=== PATIENT | male | born 1935 | race Caucasian/White ===

== ENCOUNTER 2017-07-04 18:41 | Emergency (ER) | payer MEDICARE, OTHER ==
[2017-07-04] MEDS ORDERED: Ondansetron 4 MG/2 ML SDV IVPUSH ONE (19:05)
[2017-07-04] MEDS ORDERED: Ondansetron 4 MG/2 ML SDV ONE (19:11)
[2017-07-04] MEDS: Nitroglycerin 0.4 MG Tab.SL SL PRN ×2 (19:12→19:19)
[2017-07-04] MEDS ORDERED: Aspirin 81 MG Tab.Chew PO ONE (19:14)
[2017-07-04] MEDS ORDERED: Lactated Ringers 1,000 ML IV SCH (19:15)
[2017-07-04] MEDS ORDERED: Nitroglycerin 0.4 MG Tab.SL ONE (19:16)
--- NOTE | 2017-07-04 19:21 | EDM.PDOC ---
ED HPI GENERAL MEDICAL PROBLEM - General Chief Complaint: Chest Pain Stated Complaint: CHEST PAIN Time Seen by Provider: 07/04/17 19:00 - History of Present Illness INITIAL COMMENTS - FREE TEXT/NARRATIVE: 81-year-old male presents emergency room with chest pain. This pain started around 4:00 this evening it is located under his left lower chest does not radiate into his arm or jaw or your else he has associated nausea and discomfort with this he denies any history of reflux or GERD. He did take 325 mg of aspirin at the onset. Patient has no prior history of heart problems no history of coronary artery disease. He is not treated for hypertension hyperlipidemia or diabetes. The patient does not smoke he drinks alcohol occasionally. Family history is noncontributory. Chest Pain Score (Numeric/FACES): 9 - Related Data Allergies Allergy/AdvReac Type Severity Reaction Status Date / Time adhesive tape Allergy Rash Verified 07/04/17 18:55 Home Meds: Home Meds Doxycycline [Vibramycin] 100 mg IV Q12H #19 vial 07/04/17 [Rx] Hydrocodone/Acetaminophen [[place] 5-325 Tablet] 1 - 2 each PO Q6H PRN #15 tablet 07/04/17 [Rx] Levothyroxine [Synthroid] 1 tab PO DAILY 07/04/17 [History] Tamsulosin HCl [Flomax] 1 cap PO DAILY 07/04/17 [History] Past Medical History HEENT History: Reports: Impaired Vision Genitourinary History: Reports: Other (See Below) Other Genitourinary History: Takes flomax Endocrine/Metabolic History: Reports: Hypothyroidism - Past Surgical History GI Surgical History: Reports: Colostomy, Other (See Below) Other GI Surgeries/Procedures: Colon cancer- has an ostomy Musculoskeletal Surgical History: Reports: Other (See Below) Other Musculoskeletal Surgeries/Procedures:: Back surgery, bilateral shoulder surgeries Social & Family History - Family History Family Medical History: Noncontributory ED ROS GENERAL - Review of Systems Review Of Systems: See Below Constitutional: Reports: No Symptoms HEENT: Reports: No Symptoms Respiratory: Reports: No Symptoms Cardiovascular: Reports: No Symptoms Endocrine: Reports: No Symptoms GI/Abdominal: Reports: No Symptoms, Other (Will touch the stomach flu several days ago but this resolved several days ago) : Reports: No Symptoms Musculoskeletal: Reports: No Symptoms Neurological: Reports: No Symptoms Hematologic/Lymphatic: Reports: No Symptoms Immunologic: Reports: No Symptoms ED EXAM, GENERAL - Physical Exam Exam: See Below Exam Limited By: No Limitations General Appearance: Mild Distress (From the pain) Head: Atraumatic, Normocephalic Neck: Normal Inspection, Supple, Non-Tender, Full Range of Motion. No: Lymphadenopathy (L), Lymphadenopathy (R) Respiratory/Chest: No Respiratory Distress, Lungs Clear, Normal Breath Sounds Cardiovascular: Normal Peripheral Pulses, Regular Rate, Rhythm, No Edema GI/Abdominal: Normal Bowel Sounds, Soft, Non-Tender Back Exam: Normal Inspection. No: CVA Tenderness (L), CVA Tenderness (R) Extremities: Normal Inspection, No Pedal Edema Neurological: Alert, Oriented, Normal Cognition Psychiatric: Normal Affect, Normal Mood Lymphatic: No Adenopathy Course - Vital Signs Last Recorded V/S: Last Vital Signs Temp 36.7 C 07/04/17 18:51 Pulse 55 L 07/04/17 18:51 Resp 15 07/04/17 18:51 BP 139/56 L 07/04/17 19:20 Pulse Ox 98 07/04/17 18:51 - Orders/Labs/Meds Orders: Active Orders 24 hr Category Date Time Status EKG Documentation Completion [RC] STAT Care 07/04/17 19:34 Active Abdomen Pelvis w Cont [CT] Routine Exams 07/04/17 Taken Ang Chest [CT] Stat Exams 07/04/17 20:31 Taken Chest 1V Frontal [CR] Stat Exams 07/04/17 19:29 Taken CULTURE BLOOD [BC] Stat Lab 07/04/17 22:41 Received CULTURE BLOOD [BC] Stat Lab 07/04/17 22:51 Received Nitroglycerin [Nitrostat] Med 07/04/17 19:09 Active 0.4 mg SL Q5M PRN Sodium Chloride 0.9% [Normal Saline] 1,000 ml Med 07/04/17 22:30 Active IV ASDIRECTED Sodium Chloride 0.9% [Normal Saline] 100 ml Med 07/04/17 21:00 Active IV ASDIRECTED Sodium Chloride 0.9% [Saline Flush] Med 07/04/17 20:58 Active 10 ml FLUSH ONETIME PRN Blood Culture x2 Reflex Set [OM.PC] Stat Oth 07/04/17 22:17 Ordered Medication Orders Sodium Chloride (Normal Saline) 100 mls @ 75 mls/hr IV ASDIRECTED STEFANIE Last Admin: 07/04/17 21:18 Dose: 75 mls/hr Sodium Chloride (Normal Saline) 1,000 mls @ 125 mls/hr IV ASDIRECTED STEFANIE Last Admin: 07/04/17 22:37 Dose: 125 mls/hr Nitroglycerin (Nitrostat) 0.4 mg SL Q5M PRN PRN Reason: Chest Pain Last Admin: 07/04/17 19:19 Dose: 0.4 mg Admin: 07/04/17 19:12 Dose: 0.4 mg Sodium Chloride (Saline Flush) 10 ml FLUSH ONETIME PRN PRN Reason: IV FLUSH Last Admin: 07/04/17 21:18 Dose: 10 ml Labs: Laboratory Tests 07/04/17 07/04/17 07/04/17 Range/Units 18:55 18:55 18:55 WBC 10.40 H (4.23-9.07) K/mm3 RBC 4.92 (4.63-6.08) M/mm3 Hgb 14.7 (13.7-17.5) gm/L Hct 43.6 (40.1-51.0) % MCV 88.6 (79.0-92.2) fl MCH 29.9 (25.7-32.2) pg MCHC 33.7 (32.2-35.5) g/dl RDW Std Deviation 40.3 (35.1-43.9) fL Plt Count 250 (163-337) K/mm3 MPV 9.7 (9.4-12.3) fl Neutrophils % (Manual) 79 H (40-60) % Band Neutrophils % 1 (0-10) % Lymphocytes % (Manual) 16 L (20-40) % Atypical Lymphs % 0 % Monocytes % (Manual) 3 (2-10) % Eosinophils % (Manual) 1 (0.8-7.0) % Basophils % (Manual) 0 L (0.2-1.2) Platelet Estimate Adequate RBC Morph Comment Normal PT 11.5 (8.0-13.0) SECONDS INR 1.05 APTT 26 (22-36) SECONDS Sodium 139 (136-145) mEq/L Potassium 3.4 L (3.5-5.1) mEq/L Chloride 102 (98-107) mEq/L Carbon Dioxide 29 (21-32) mEq/L Anion Gap 11.4 (5-15) BUN 17 (7-18) mg/dL Creatinine 1.4 H (0.7-1.3) mg/dL Est Cr Clr Drug Dosing 41.85 mL/min Estimated GFR (MDRD) 49 (>60) mL/min BUN/Creatinine Ratio 12.1 L (14-18) Glucose 134 H (83-115) mg/dL Calcium 8.9 (8.5-10.1) mg/dL Total Bilirubin 0.5 (0.2-1.0) mg/dL AST 21 (15-37) U/L ALT 29 (16-63) U/L Alkaline Phosphatase 92 (46-116) U/L Troponin I < 0.017 (0.00-0.056) ng/mL Total Protein 7.4 (6.4-8.2) g/dl Albumin 3.8 (3.4-5.0) g/dl Globulin 3.6 gm/dL Albumin/Globulin Ratio 1.1 (1-2) 07/04/17 Range/Units 20:54 WBC (4.23-9.07) K/mm3 RBC (4.63-6.08) M/mm3 Hgb (13.7-17.5) gm/L Hct (40.1-51.0) % MCV (79.0-92.2) fl MCH (25.7-32.2) pg MCHC (32.2-35.5) g/dl RDW Std Deviation (35.1-43.9) fL Plt Count (163-337) K/mm3 MPV (9.4-12.3) fl Neutrophils % (Manual) (40-60) % Band Neutrophils % (0-10) % Lymphocytes % (Manual) (20-40) % Atypical Lymphs % % Monocytes % (Manual) (2-10) % Eosinophils % (Manual) (0.8-7.0) % Basophils % (Manual) (0.2-1.2) Platelet Estimate RBC Morph Comment PT (8.0-13.0) SECONDS INR APTT (22-36) SECONDS Sodium (136-145) mEq/L Potassium (3.5-5.1) mEq/L Chloride (98-107) mEq/L Carbon Dioxide (21-32) mEq/L Anion Gap (5-15) BUN (7-18) mg/dL Creatinine (0.7-1.3) mg/dL Est Cr Clr Drug Dosing mL/min Estimated GFR (MDRD) (>60) mL/min BUN/Creatinine Ratio (14-18) Glucose (83-115) mg/dL Calcium (8.5-10.1) mg/dL Total Bilirubin (0.2-1.0) mg/dL AST (15-37) U/L ALT (16-63) U/L Alkaline Phosphatase (46-116) U/L Troponin I < 0.017 (0.00-0.056) ng/mL Total Protein (6.4-8.2) g/dl Albumin (3.4-5.0) g/dl Globulin gm/dL Albumin/Globulin Ratio (1-2) Meds: Medications Generic Name Dose Route Start Last Admin Trade Name Freq PRN Reason Stop Dose Admin Sodium Chloride 100 mls @ 75 mls/hr 07/04/17 21:00 07/04/17 21:18 Normal Saline IV 75 mls/hr ASDIRECTED STEFANIE Administration Sodium Chloride 1,000 mls @ 125 mls/hr 07/04/17 22:30 07/04/17 22:37 Normal Saline IV 125 mls/hr ASDIRECTED STEFANIE Administration Nitroglycerin 0.4 mg 07/04/17 19:09 07/04/17 19:19 Nitrostat SL 0.4 mg Q5M PRN Administration Chest Pain Sodium Chloride 10 ml 07/04/17 20:58 07/04/17 21:18 Saline Flush FLUSH 10 ml ONETIME PRN Administration IV FLUSH Discontinued Medications Generic Name Dose Route Start Last Admin Trade Name Freq PRN Reason Stop Dose Admin Hydrocodone Bitart/Acetaminophen 1 tab 07/04/17 22:33 07/04/17 22:36 [place] 325-5 Mg PO 07/04/17 22:34 1 tab ONETIME ONE Administration Hydrocodone Bitart/Acetaminophen 1 tab 07/04/17 23:38 07/04/17 23:48 [place] 325-5 Mg PO 07/04/17 23:39 1 tab ONETIME ONE Administration Hydrocodone Bitart/Acetaminophen Confirm 07/05/17 00:02 Take Home: Acetam/Hydrocodon 325-5 Mg, 5 Pack Administered 07/05/17 00:03 Dose 1 packet .ROUTE .STK-MED ONE Aspirin 324 mg 07/04/17 19:14 07/04/17 19:19 Aspirin PO 07/04/17 19:15 Not Given ONETIME ONE Al Hydroxide/Mg Hydroxide 30 0 ml 07/04/17 20:16 07/04/17 20:20 ml/ Lidocaine HCl 15 ml PO 07/04/17 20:17 45 ml ONETIME ONE Administration Fentanyl Confirm 07/04/17 19:45 07/04/17 20:22 Sublimaze Administered 07/04/17 19:46 Not Given Dose 100 mcg .ROUTE .STK-MED ONE Fentanyl 25 mcg 07/04/17 19:43 07/04/17 19:43 Sublimaze IVPUSH 07/04/17 19:44 25 mcg ONETIME ONE Administration Fentanyl 25 mcg 07/04/17 19:49 07/04/17 19:55 Sublimaze IVPUSH 07/04/17 19:50 Not Given ONETIME ONE Fentanyl 25 mcg 07/04/17 20:26 07/04/17 20:31 Sublimaze IVPUSH 07/04/17 20:27 25 mcg ONETIME ONE Administration Fentanyl 25 mcg 07/04/17 20:47 07/04/17 21:24 Sublimaze IVPUSH 07/04/17 20:48 25 mcg ONETIME ONE Administration Lactated Ringer's 1,000 mls @ 50 mls/hr 07/04/17 19:15 07/04/17 20:53 Ringers, Lactated IV 50 mls/hr ASDIRECTED STEFANIE Infusion Ceftriaxone Sodium 1 gm/ 100 mls @ 200 mls/hr 07/04/17 22:23 07/04/17 22:37 Sodium Chloride IV 07/04/17 22:52 200 mls/hr ONETIME ONE Administration Iopamidol 100 ml 07/04/17 20:58 07/04/17 21:18 Isovue-370 (76%) IVPUSH 07/04/17 20:59 100 ml ONETIME ONE Administration Morphine Sulfate Confirm 07/04/17 19:33 07/04/17 19:44 Morphine Administered 07/04/17 19:34 Not Given Dose 2 mg .ROUTE .STK-MED ONE Morphine Sulfate 1 mg 07/04/17 19:27 07/04/17 19:27 Morphine IVPUSH 07/04/17 19:28 1 mg ONETIME ONE Administration Morphine Sulfate 1 mg 07/04/17 19:35 07/04/17 19:45 Morphine IVPUSH 07/04/17 19:36 Not Given ONETIME ONE Nitroglycerin Confirm 07/04/17 19:16 07/04/17 19:20 Nitrostat Administered 07/04/17 19:17 Not Given Dose 0.4 mg .ROUTE .STK-MED ONE Ondansetron HCl 4 mg 07/04/17 19:05 07/04/17 19:10 Zofran IVPUSH 07/04/17 19:06 4 mg ONETIME ONE Administration Ondansetron HCl Confirm 07/04/17 19:11 07/04/17 19:20 Zofran Administered 07/04/17 19:12 Not Given Dose 4 mg .ROUTE .STK-MED ONE Sucralfate 1 gm 07/04/17 21:30 07/04/17 21:34 Carafate PO 07/04/17 21:31 1 gm ONETIME ONE Administration - Re-Assessments/Exams Free Text/Narrative Re-Assessment/Exam: 07/04/17 19:34 Patient has had no improvement with 2 sublingual nitroglycerin. He had taken 325 mg of aspirin prior to arrival. With no improvement IV fluids were started he was given 1 mg of morphine he has not had much improvement with this this will be repeated second EKG pending first EKG shows sinus bradycardia rate [address]-T wave changes she's got some nonspecific nondiagnostic ST elevation inferiorly. 07/04/17 23:02 Patient had his best pain improvement with some IV fentanyl. We attempted a GI cocktail this did not seem to help. With the uncertainty CTA was obtained which showed bibasilar bronchopneumonia no signs of pulmonary embolism no acute findings in the thoracic aorta abdomen pelvis no acute findings of the abdominal aorta his gallbladder does appear to be inflamed he has multiple small stones in the gallbladder gallbladder is at the upper limit of normal in size measuring about 4.8 cm no ductal dilation. With further discussion with the patient as it turns out he had a normal stress test done on May 17, 2017. A second troponin was negative his vitals are remained stable here he has been afebrile and he's not required any supplemental oxygen the patient will most likely be treated as an outpatient for pneumonia on doxycycline 100 mg twice daily anticipating outpatient gallbladder ultrasound and close follow-up in the clinic. Departure - Departure Time of Disposition: 23:05 Disposition: Home, Self-Care 01 Clinical Impression: Pneumonia, Cholelithiasis Prescriptions: Doxycycline [Vibramycin] 100 mg IV Q12H #19 vial Hydrocodone/Acetaminophen [[place] 5-325 Tablet] 1 - 2 each PO Q6H PRN #15 tablet PRN Reason: Pain Referrals: PCP,Not In Area [Primary Care Provider] - Forms: ED Department Discharge Additional Instructions: Return to the emergency room with any questions problems worsening symptoms. Follow-up he regular provider or physician tomorrow for recheck. He been started on on doxycycline this is an antibiotic take it once twice daily for the pneumonia. You should be scheduled for a gallbladder ultrasound. This will help clarify the issue with possible gallbladder disease. You have been given a prescription for hydrocodone take one or 2 every 6 hours as needed for pain. Allow 12 hours after using this medication before driving or returning to work - My Orders Last 24 Hours: My Active Orders 07/04/17 Abdomen Pelvis w Cont [CT] Routine 07/04/17 19:09 Nitroglycerin [Nitrostat] 0.4 mg SL Q5M PRN 07/04/17 19:29 Chest 1V Frontal [CR] Stat 07/04/17 19:34 EKG Documentation Completion [RC] STAT 07/04/17 20:31 Ang Chest [CT] Stat 07/04/17 20:58 Sodium Chloride 0.9% [Saline Flush] 10 ml FLUSH ONETIME PRN 07/04/17 21:00 Sodium Chloride 0.9% [Normal Saline] 100 ml IV ASDIRECTED 07/04/17 22:17 Blood Culture x2 Reflex Set [OM.PC] Stat 07/04/17 22:30 Sodium Chloride 0.9% [Normal Saline] 1,000 ml IV ASDIRECTED 07/04/17 22:41 CULTURE BLOOD [BC] Stat 07/04/17 22:51 CULTURE BLOOD [BC] Stat - Assessment/Plan Last 24 Hours: My Active Orders 07/04/17 Abdomen Pelvis w Cont [CT] Routine 07/04/17 19:09 Nitroglycerin [Nitrostat] 0.4 mg SL Q5M PRN 07/04/17 19:29 Chest 1V Frontal [CR] Stat 07/04/17 19:34 EKG Documentation Completion [RC] STAT 07/04/17 20:31 Ang Chest [CT] Stat 07/04/17 20:58 Sodium Chloride 0.9% [Saline Flush] 10 ml FLUSH ONETIME PRN 07/04/17 21:00 Sodium Chloride 0.9% [Normal Saline] 100 ml IV ASDIRECTED 07/04/17 22:17 Blood Culture x2 Reflex Set [OM.PC] Stat 07/04/17 22:30 Sodium Chloride 0.9% [Normal Saline] 1,000 ml IV ASDIRECTED 07/04/17 22:41 CULTURE BLOOD [BC] Stat 07/04/17 22:51 CULTURE BLOOD [BC] Stat
[2017-07-04] MEDS ORDERED: Morphine 2 MG/ML Syringe IVPUSH ONE ×2 (19:27→19:35)
[2017-07-04] MEDS ORDERED: Morphine 2 MG/ML Syringe ONE (19:33)
[2017-07-04] MEDS ORDERED: fentaNYL 100 MCG/2 ML SDV IVPUSH ONE ×4 (19:43→20:47)
[2017-07-04] MEDS ORDERED: fentaNYL 100 MCG/2 ML SDV ONE (19:45)
[2017-07-04] MEDS ORDERED: Alum Hydrox/Mag Hydrox/Simeth 30 ML, Lidocaine 2% 15 ML PO ONE ×2 (20:16)
[2017-07-04] MEDS ORDERED: Iopamidol 755 Mg/ML 100 ML Bottle IVPUSH ONE (20:58)
[2017-07-04] MEDS ORDERED: Sodium Chloride 0.9% 10 ML Syringe FLUSH PRN (20:58)
[2017-07-04] MEDS ORDERED: Sodium Chloride 0.9% 100 ML IV SCH (21:00)
[2017-07-04] MEDS ORDERED: Sucralfate Suspension 1 GM/10 ML Cup PO ONE (21:30)
[2017-07-04] MEDS ORDERED: cefTRIAXone 1 GM in Sodium Chloride 0.9% 100 ML IV ONE (22:23)
[2017-07-04] MEDS ORDERED: Sodium Chloride 0.9% 1,000 ML IV SCH (22:30)
[2017-07-04] MEDS ORDERED: Acetaminophen/HYDROcodone 325-5 MG Tab PO ONE ×2 (22:33→23:38)
[2017-07-05] MEDS ORDERED: Take Home: Acetaminophen/HYDROcodone 325-5 MG, 5 Tab Pack ONE (00:02)
--- NOTE | 2017-07-05 07:42 | CT ---
CT abdomen and pelvis Technique: Multiple axial sections were obtained from above the dome of the diaphragm inferiorly through the pubic symphysis. Intravenous contrast was utilized. No oral contrast has been given. Comparison: No previous abdominal CT, previous abdominal x-ray of 04/11/15 is available. Findings: Fatty infiltration is seen within the liver. Increased density is noted around the gallbladder most likely due to focal fatty sparing. Gallbladder is somewhat distended. Minimal calcified stones are seen within the dependent portion of the gallbladder. Spleen appears within normal limits. Adrenal glands show no nodule. Pancreas appears within normal limits. Kidneys show symmetric contrast enhancement without hydronephrosis. Several small cysts are noted within the lower left kidney with largest measuring approximately 1.3 cm. Diffuse atherosclerotic change is noted within the aorta and iliac vessels. No aneurysm is identified. No retroperitoneal adenopathy is seen. No mesenteric abnormalities are noted. Ostomy is identified within the left lower abdomen. No pelvic mass or adenopathy is seen. No free fluid or inflammatory change is identified. Celiac axis and superior mesenteric arteries appear to be patent. Minimal narrowing of the proximal right renal artery is seen and felt not to be hemodynamic significant. Inferior mesenteric artery is patent. Bone window settings were reviewed which show compression deformities within L1 and L4 which are likely old. Scattered degenerative change is seen with disc space narrowing and endplate spurring as well as degenerative apophyseal change. Impression: 1. Gallbladder somewhat distended. This may relate to fasting. 2. Several dependent gallstones within the gallbladder. 3. Fatty infiltration within the liver with focal fatty sparing around the gallbladder. 4. Other incidental findings as noted above. Diagnostic code #3 Agree with preliminary report issued by [facility] ([facility] preliminary report dictated on 07/04/17, 11:14 PM Central Time)
--- NOTE | 2017-07-05 07:42 | CT ---
CT chest Technique: Multiple axial sections through the chest were obtained. Intravenous contrast was utilized. Study has been performed as a pulmonary angiogram protocol. Comparison: No prior chest imaging. Findings: Pulmonary arteries are well-opacified. Mediastinum and hilar regions show no adenopathy or mass. Mild coronary artery calcification is seen. Increased lung markings are seen within both lung bases. Without prior chest CT uncertain if these are chronic or acute. Lungs otherwise are clear. Mild degenerative spurring is noted within the spine. Impression: 1. No findings of pulmonary embolism. 2. Mild increased lung markings within both lung bases. Without old chest CT uncertain if these are chronic or acute (I believe findings are most likely due to mild fibrosis given the patient's age). 3. Other incidental findings as noted above. Diagnostic code #2 I agree with preliminary report issued by [facility] ([facility] preliminary report dictated on 07/04/17, 10:50 PM Central Time)
--- NOTE | 2017-07-05 07:42 | CR ---
Chest: Portable view of the chest was obtained. Comparison: No prior chest x-ray. Findings: Heart size and mediastinum are normal. Slight scoliosis is noted within the upper thoracic spine with degenerative spurring. Minimal density within both lateral costophrenic angles compatible with slight atelectasis. Lungs otherwise are clear. Impression: 1. Nothing acute is identified on portable chest x-ray. Diagnostic code #2
== END 2017-07-05 00:10 | disposition home or self-care (01) ==
LOC: JD.ED 18:41
DX: J18.9 Pneumonia, unspecified organism (principal); K80.20 Calculus of gallbladder without cholecystitis without obstruction; E03.9 Hypothyroidism, unspecified; Z79.899 Other long term (current) drug therapy; Z91.09 Other allergy status, other than to drugs and biological substances
CPT/HCPCS: 36415; 71045; 71275; 74177; 80053; 84484; 85025; 85610; 85730; 87040; 93005; 96361; 96365; 96375; 96376; 99285; A9270; J0696; J2270; J2405; J3010; J7030; J7040; J7050; J7120; Q9967

== ENCOUNTER 2022-09-15 15:48 | Inpatient (IN) | payer MEDICARE, BC ==
[2022-09-15] MEDS ORDERED: Ondansetron 4 MG/2 ML SDV IVPUSH ONE (16:04)
[2022-09-15] MEDS ORDERED: Sodium Chloride 0.9% 1,000 ML IV ONE ×2 (16:04→18:13)
[2022-09-15] MEDS ORDERED: Sodium Chloride 0.9% 10 ML Syringe FLUSH PRN (16:04)
[2022-09-15 16:49] LABS: ESTIMATED GFR 32 mL/min (>60)
[2022-09-15] MEDS ORDERED: Metoclopramide 10 MG/2 ML SDV IVPUSH ONE (18:13)
[2022-09-15] MEDS ORDERED: Acetaminophen 325 MG Tab PO PRN (18:38)
[2022-09-15] MEDS ORDERED: Promethazine 6.25 MG in Sodium Chloride 0.9% 50 ML IV PRN (18:38)
[2022-09-15] MEDS ORDERED: Ondansetron 4 MG/2 ML SDV IV PRN (18:38)
[2022-09-15 18:46] LABS: CORONAVIRUS COVID-19 NAA NEGATIVE (NEGATIVE)
[2022-09-15] MEDS: Heparin Sodium 5,000 Units/ML Vial SUBCUT SCH (19:24)
[2022-09-15] MEDS: NS + KCl 20mEq/L 1,000 ML IV SCH (20:50)
[2022-09-16] MEDS: Heparin Sodium 5,000 Units/ML Vial SUBCUT SCH ×3 (03:58→19:32)
[2022-09-16] MEDS: Levothyroxine 88 MCG Tab PO SCH (05:37)
[2022-09-16] MEDS ORDERED: Loperamide 2 MG Cap PO ONE (08:22)
[2022-09-16] MEDS: Tamsulosin 0.4 MG Cap.ER PO SCH (08:58)
[2022-09-16] MEDS: NS + KCl 20mEq/L 1,000 ML IV SCH (10:18)
[2022-09-16] MEDS ORDERED: Calcium Carbonate 500 MG Tab.Chew PO PRN ×2 (11:04→12:18)
[2022-09-17] MEDS: Heparin Sodium 5,000 Units/ML Vial SUBCUT SCH ×2 (04:12→11:34)
[2022-09-17] MEDS: Levothyroxine 88 MCG Tab PO SCH (05:31)
[2022-09-17] MEDS: Tamsulosin 0.4 MG Cap.ER PO SCH (08:13)
== END 2022-09-17 13:05 | disposition home or self-care (01) | DRG 392 ==
LOC: JD.ED 15:48 → JD.MS 18:30
PROVIDERS: ADMIT Internal Medicine; ATTEND Internal Medicine
DX: A08.4 Viral intestinal infection, unspecified (principal); N17.9 Acute kidney failure, unspecified; N40.1 Benign prostatic hyperplasia with lower urinary tract symptoms; R35.0 Frequency of micturition; E03.9 Hypothyroidism, unspecified; E86.0 Dehydration; R74.01 Elevation of levels of liver transaminase levels; K21.9 Gastro-esophageal reflux disease without esophagitis; N18.9 Chronic kidney disease, unspecified; H54.7 Unspecified visual loss; Z20.822 Contact with and (suspected) exposure to COVID-19; Z85.038 Personal history of other malignant neoplasm of large intestine; Z90.49 Acquired absence of other specified parts of digestive tract; Z91.09 Other allergy status, other than to drugs and biological substances; Z79.890 Hormone replacement therapy
CPT/HCPCS: 0241U; 36415; 74176; 74176-26; 80053; 80143; 81001; 83690; 83735; 85025; 85027; 86140; 96361; 96374; 96375; 99285; 99285-25; A9270-GY; J1644; J2405; J2550; J2765; J3480; J3490; J7030

== ENCOUNTER 2023-06-24 11:17 | Emergency (ER) | payer MEDICARE, BC ==
[2023-06-24] MEDS ORDERED: Sodium Chloride 0.9% 10 ML Syringe FLUSH PRN (11:47)
[2023-06-24] MEDS ORDERED: Iopamidol 755 Mg/ML 100 ML Bottle IVPUSH ONE (11:47)
[2023-06-24] MEDS ORDERED: Ondansetron 4 MG/2 ML SDV IVPUSH ONE (11:49)
[2023-06-24 11:52] LABS: BASOPHILS ABSOLUTE AUTO 0.1 K/mm3 (0.0-0.2); BASOPHILS PERCENT AUTO 0.8 % (0.0-1.0); EOSINOPHILS ABSOLUTE AUTO 0.4 K/mm3 (0.0-0.4); EOSINOPHILS PERCENT AUTO 4.8 % (0.0-6.0); HEMATOCRIT 41.3 % (42.0-52.0); HEMOGLOBIN 14.2 gm/dl (14.0-18.0); IMMATURE GRAN ABSOLUTE AUTO 0.02 K/mm3 (0.00-0.05); IMMATURE GRAN PERCENT AUTO 0.3 % (0.0-0.4); LYMPHOCYTES ABSOLUTE AUTO 2.1 K/mm3 (1.0-4.8); LYMPHOCYTES PERCENT AUTO 28.7 % (24.0-44.0); MEAN CORPUSCULAR HEMOGLOBIN 30.5 pg (28.0-32.0); MEAN CORPUSCULAR HGB CONC 34.4 g/dl (32.0-36.0); MEAN CORPUSCULAR VOLUME 88.6 fl (83.0-99.0); MEAN PLATELET VOLUME 9.2 fl (9.4-12.4); MONOCYTES ABSOLUTE AUTO 0.5 K/mm3 (0.0-0.8); MONOCYTES PERCENT AUTO 6.9 % (0.0-8.0); NEUTROPHILS ABSOLUTE AUTO 4.3 K/mm3 (1.8-7.7); NEUTROPHILS PERCENT AUTO 58.5 % (41.0-71.0); PLATELET COUNT,PLT 220 K/mm3 (150-400); RED BLOOD CELL COUNT 4.66 M/mm3 (4.52-5.90); WHITE BLOOD CELL COUNT,WBC 7.28 K/mm3 (3.9-11.3)
[2023-06-24] MEDS ORDERED: Sodium Chloride 0.9% 100 ML IV SCH (12:00)
[2023-06-24 12:22] LABS: A/G RATIO 0.9 (1-2); ALANINE AMINOTRANSFERASE,ALT 42 U/L (16-63); ALBUMIN 3.4 g/dl (3.4-5.0); ALKALINE PHOSPHATASE 119 U/L (46-116); ANION GAP 14.6 (5-15); ASPARTATE AMNIOTRANSFERASE,AST 66 U/L (15-37); BILIRUBIN TOTAL 0.8 mg/dL (0.2-1.0); BLOOD UREA NITROGEN,BUN 15 mg/dL (7-18); BUN/CREATININE RATIO 12.5 (14-18); CALCIUM 8.6 mg/dL (8.5-10.1); CARBON DIOXIDE,CO2 26 mEq/L (21-32); CHLORIDE,CL 106 mEq/L (98-107); CREATININE 1.2 mg/dL (0.7-1.3); ESTIMATED GFR 59 mL/min (>60); GLUCOSE RANDOM 118 mg/dL (70-99); POTASSIUM,K 3.6 mEq/L (3.5-5.1); SODIUM,NA 143 mEq/L (136-145); TROPONIN I HIGH SENSITIVITY 8 pg/mL (<=76)
[2023-06-24 13:37] LABS: APPEARANCE,URINE CLEAR (Clear); BILIRUBIN,URINE NEGATIVE (Negative); COLOR,URINE YELLOW (Yellow); GLUCOSE,URINE NEGATIVE (Negative); KETONES,URINE NEGATIVE (Negative); LEUKOCYTE ESTERASE,URINE NEGATIVE (Negative); NITRITE,URINE NEGATIVE (Negative); OCCULT BLOOD,URINE TRACE-INTACT (Negative); PROTEIN,URINE NEGATIVE (Negative); UROBILINOGEN,URINE 0.2 (0.2-1.0)
[2023-06-24 14:13] LABS: BACTERIA,URINE FEW /hpf (FEW); EPITHELIAL CELLS,URINE 0-5 /hpf (0-5); MUCUS,URINE FEW /hpf (FEW); RBC,URINE 0-5 /hpf (0-5); WBC,URINE 0-5 /hpf (0-5)
== END 2023-06-24 20:25 | disposition home or self-care (01) ==
LOC: JD.ED 11:17
DX: R10.11 Right upper quadrant pain (principal); E03.9 Hypothyroidism, unspecified; Z91.048 Other nonmedicinal substance allergy status
CPT/HCPCS: 36415; 71045; 71260; 74177; 80053; 81001; 83690; 83880; 84484; 85025; 85379; 93005; 96374; 99285; J2405; J3490; Q9967; 93010; 99284

== ENCOUNTER 2023-06-25 20:02 | Emergency (ER) | payer MEDICARE, BC ==
[2023-06-25] MEDS ORDERED: Sodium Chloride 0.9% 10 ML Syringe FLUSH PRN (20:43)
[2023-06-25] MEDS ORDERED: Iopamidol 612 MG/ML 100 ML Bottle IVPUSH ONE (20:50)
[2023-06-25] MEDS ORDERED: Sodium Chloride 0.9% 10 ML Syringe FLUSH ONE (20:50)
[2023-06-25 21:11] LABS: BASOPHILS ABSOLUTE AUTO 0.1 K/mm3 (0.0-0.2); BASOPHILS PERCENT AUTO 0.9 % (0.0-1.0); EOSINOPHILS ABSOLUTE AUTO 0.3 K/mm3 (0.0-0.4); EOSINOPHILS PERCENT AUTO 4.9 % (0.0-6.0); HEMOGLOBIN 13.4 gm/dl (14.0-18.0); IMMATURE GRAN ABSOLUTE AUTO 0.01 K/mm3 (0.00-0.05); IMMATURE GRAN PERCENT AUTO 0.2 % (0.0-0.4); LYMPHOCYTES ABSOLUTE AUTO 1.2 K/mm3 (1.0-4.8); MEAN CORPUSCULAR HEMOGLOBIN 30.5 pg (28.0-32.0); MEAN CORPUSCULAR HGB CONC 34.4 g/dl (32.0-36.0); MEAN CORPUSCULAR VOLUME 88.8 fl (83.0-99.0); MEAN PLATELET VOLUME 9.3 fl (9.4-12.4); MONOCYTES ABSOLUTE AUTO 0.4 K/mm3 (0.0-0.8); MONOCYTES PERCENT AUTO 7.6 % (0.0-8.0); NEUTROPHILS ABSOLUTE AUTO 3.5 K/mm3 (1.8-7.7); NEUTROPHILS PERCENT AUTO 64.4 % (41.0-71.0); PLATELET COUNT,PLT 216 K/mm3 (150-400); RED BLOOD CELL COUNT 4.39 M/mm3 (4.52-5.90)
[2023-06-25 21:34] LABS: A/G RATIO 0.9 (1-2); ALBUMIN 3.2 g/dl (3.4-5.0); ANION GAP 13.6 (5-15); BILIRUBIN TOTAL 0.8 mg/dL (0.2-1.0); BUN/CREATININE RATIO 13.1 (14-18); CALCIUM 8.5 mg/dL (8.5-10.1); CREATININE 1.6 mg/dL (0.7-1.3); EST CRCL DRUG DOSING (CG) 23.44 mL/min; POTASSIUM,K 3.6 mEq/L (3.5-5.1); PROTEIN TOTAL,TP 6.7 g/dl (6.4-8.2)
== END 2023-06-25 22:43 | disposition home or self-care (01) ==
LOC: JD.ED 20:02
DX: R74.01 Elevation of levels of liver transaminase levels (principal); E03.9 Hypothyroidism, unspecified; Z91.048 Other nonmedicinal substance allergy status
CPT/HCPCS: 36415; 74160; 80053; 85025; 99284; J3490; Q9967

== ENCOUNTER 2024-05-25 20:43 | Emergency (ER) | payer MEDICARE, BC ==
[2024-05-25] MEDS ORDERED: Sodium Chloride 0.9% 10 ML Syringe FLUSH PRN (21:23)
[2024-05-25] MEDS: Sodium Chloride 0.9% 500 ML IV ONE (21:49)
[2024-05-25 21:57] LABS: BASOPHILS ABSOLUTE AUTO 0.1 K/mm3 (0.0-0.2); BASOPHILS PERCENT AUTO 0.8 % (0.0-1.0); EOSINOPHILS ABSOLUTE AUTO 0.2 K/mm3 (0.0-0.4); EOSINOPHILS PERCENT AUTO 1.7 % (0.0-6.0); HEMATOCRIT 38.4 % (42.0-52.0); HEMOGLOBIN 13.3 gm/dl (14.0-18.0); IMMATURE GRAN ABSOLUTE AUTO 0.04 K/mm3 (0.00-0.05); IMMATURE GRAN PERCENT AUTO 0.4 % (0.0-0.4); LYMPHOCYTES ABSOLUTE AUTO 1.2 K/mm3 (1.0-4.8); LYMPHOCYTES PERCENT AUTO 12.7 % (24.0-44.0); MEAN CORPUSCULAR HEMOGLOBIN 30.6 pg (28.0-32.0); MEAN CORPUSCULAR HGB CONC 34.6 g/dl (32.0-36.0); MEAN CORPUSCULAR VOLUME 88.5 fl (83.0-99.0); MEAN PLATELET VOLUME 9.4 fl (9.4-12.4); MONOCYTES ABSOLUTE AUTO 0.6 K/mm3 (0.0-0.8); MONOCYTES PERCENT AUTO 7.1 % (0.0-8.0); NEUTROPHILS PERCENT AUTO 77.3 % (41.0-71.0); PLATELET COUNT,PLT 165 K/mm3 (150-400); RED BLOOD CELL COUNT 4.34 M/mm3 (4.52-5.90); WHITE BLOOD CELL COUNT,WBC 9.06 K/mm3 (3.9-11.3)
[2024-05-25 22:19] LABS: A/G RATIO 1.1 (1-2); ALBUMIN 3.4 g/dl (3.4-5.0); BILIRUBIN TOTAL 0.4 mg/dL (0.2-1.0); BUN/CREATININE RATIO 17.9 (14-18); CALCIUM 8.4 mg/dL (8.5-10.1); CREATININE 1.4 mg/dL (0.7-1.3); EST CRCL DRUG DOSING (CG) 39.35 mL/min; MAGNESIUM 1.9 mg/dL (1.8-2.4); PROTEIN TOTAL,TP 6.5 g/dl (6.4-8.2)
[2024-05-26 00:57] LABS: APPEARANCE,URINE CLEAR (Clear); BILIRUBIN,URINE NEGATIVE (Negative); COLOR,URINE YELLOW (Yellow); GLUCOSE,URINE NEGATIVE (Negative); KETONES,URINE NEGATIVE (Negative); LEUKOCYTE ESTERASE,URINE 2+ (Negative); NITRITE,URINE POSITIVE (Negative); OCCULT BLOOD,URINE NEGATIVE (Negative); PH,URINE 6.5 (5.0-8.0); PROTEIN,URINE 1+ (Negative); UROBILINOGEN,URINE 0.2 (0.2-1.0)
[2024-05-26 01:41] LABS: BACTERIA,URINE MODERATE /hpf (FEW); MUCUS,URINE FEW /hpf (FEW); RBC,URINE 0-5 /hpf (0-5)
[2024-05-26 01:42] LABS: SQUAMOUS EPITHELIAL CELLS,UR 0-5 /hpf (0-5)
[2024-05-26] MEDS: cefTRIAXone 500 MG Vial IVPUSH ONE (02:48)
== END 2024-05-26 03:02 | disposition home or self-care (01) ==
LOC: JD.ED 20:43
DX: R55 Syncope and collapse (principal); N39.0 Urinary tract infection, site not specified; E03.9 Hypothyroidism, unspecified; Z86.16 Personal history of COVID-19; Z90.49 Acquired absence of other specified parts of digestive tract; Z91.048 Other nonmedicinal substance allergy status; Z79.890 Hormone replacement therapy; Z79.899 Other long term (current) drug therapy
CPT/HCPCS: 36415; 71045; 71045-26; 80053; 81001; 83735; 83880; 84484; 85025; 87086; 87428-QW; 93005; 96361; 96374; 99285-25; J0696; J7030

== ENCOUNTER 2024-08-11 15:49 | Emergency (ER) | payer MEDICARE, BC | END 2024-08-11 17:20 | disposition home or self-care (01) | LOC: JD.ED 15:49 | DX: S40.011A Contusion of right shoulder, initial encounter (principal); E03.9 Hypothyroidism, unspecified; Z86.16 Personal history of COVID-19; Z90.49 Acquired absence of other specified parts of digestive tract; Z91.048 Other nonmedicinal substance allergy status; Z79.890 Hormone replacement therapy; Z79.899 Other long term (current) drug therapy; W18.30XA Fall on same level, unspecified, initial encounter | CPT/HCPCS: 73030-26-RT; 73030-RT; 99283 ==